=== PATIENT | female | born 2000 ===

== ENCOUNTER 2023-03-27 15:48 | Inpatient (IN) | payer BC ==
[2023-03-27] MEDS: Lactated Ringers 1,000 ML IV SCH ×3 (15:50→20:08)
[2023-03-27] MEDS ORDERED: Sodium Chloride 0.9% 20 ML SDV IV PRN (15:53)
[2023-03-27] MEDS ORDERED: Sodium Chloride 0.9% 2.5 ML Syringe FLUSH PRN (15:53)
[2023-03-27] MEDS ORDERED: Butorphanol 1 MG/ML SDV IVPUSH PRN (15:53)
[2023-03-27] MEDS ORDERED: Carboprost Tromethamine 250 MCG/1 mL Vial IM PRN (15:53)
[2023-03-27] MEDS ORDERED: Misoprostol 200 MCG Tab PO PRN (15:53)
[2023-03-27] MEDS ORDERED: Methylergonovine 0.2 MG/1 ML Amp IM PRN (15:53)
[2023-03-27] MEDS ORDERED: Water For Irrigation,Sterile 1,000 ML Container IRR PRN (15:53)
[2023-03-27] MEDS ORDERED: Lidocaine 1% 50 ML MDV INJECT PRN (15:53)
[2023-03-27] MEDS ORDERED: Tranexamic Acid 1,000 MG in Sodium Chloride 0.9% 100 ML IV PRN (15:53)
[2023-03-27] MEDS ORDERED: Sodium Chloride 0.9% 10 ML Syringe FLUSH PRN (15:53)
[2023-03-27] MEDS ORDERED: Dexmedetomidine 200 MCG/2 ML SDV ONE (15:58)
[2023-03-27] MEDS ORDERED: Morphine PF 10 MG/10 ML SDV ONE (15:58)
[2023-03-27] MEDS ORDERED: Ondansetron 4 MG/2 ML SDV ONE (15:58)
[2023-03-27] MEDS ORDERED: Lactated Ringers 1,000 ML IV SCH (16:00)
[2023-03-27] MEDS ORDERED: Oxytocin/0.9 % Sodium Chloride 30 UNIT/500 ML BAG IV SCH ×2 (16:00)
[2023-03-27] MEDS ORDERED: ePHEDrine 50 MG/ML SDV IVPUSH PRN (16:19)
[2023-03-27] MEDS ORDERED: Ondansetron 4 MG/2 ML SDV IVPUSH PRN ×2 (16:19→19:55)
[2023-03-27] MEDS ORDERED: diphenhydrAMINE 50 MG/ML SDV IVPUSH PRN (16:19)
[2023-03-27 16:21] LABS: HEMATOCRIT 38.9 % (36.0-46.0); HEMOGLOBIN 13.5 g/dL (12.0-16.0); MEAN CORPUSCULAR HEMOGLOBIN 29.6 pg (27.0-32.0); MEAN CORPUSCULAR HGB CONC 34.7 g/dL (31.0-37.0); MEAN CORPUSCULAR VOLUME 85.3 fL (80.0-98.0); PLATELET COUNT,PLT 330 K/uL (150-400); RED BLOOD CELL COUNT 4.56 M/uL (4.30-5.90); WHITE BLOOD CELL COUNT,WBC 11.75 K/uL (4.0-11.0)
[2023-03-27] MEDS ORDERED: Citric Acid/Sodium Citrate Solution 30 ML Cup PO ONE (16:50)
[2023-03-27] MEDS ORDERED: Lidocaine 2% with EPINEPHrine 1:200,000 20 ML SDV ONE (16:51)
[2023-03-27] MEDS ORDERED: ceFAZolin 2 GM Vial ONE ×2 (16:54→18:43)
[2023-03-27] MEDS ORDERED: ceFAZolin 1 GM Vial ONE (18:43)
[2023-03-27] MEDS ORDERED: Ketorolac 30 MG/ML SDV ONE (18:55)
[2023-03-27] MEDS ORDERED: Oxytocin 10 Units/1 ML SDV ONE (18:55)
[2023-03-27] MEDS ORDERED: Dexamethasone 4 MG/ML 5 ML MDV ONE (18:56)
[2023-03-27] MEDS ORDERED: Phenylephrine HCl 0.5 MG/5 ML AMP ONE (18:58)
[2023-03-27] MEDS ORDERED: Ropivacaine 0.5% 5 MG/ML 30 ML SDV ONE (19:16)
[2023-03-27 19:54] LABS: AMPHETAMINES SCREEN, URINE NEGATIVE (CUTOFF=500); BARBITURATE SCREEN,URINE NEGATIVE (CUTOFF=200); BENZODIAZEPINES SCREEN,URINE NEGATIVE (CUTOFF=150); BUPRENORPHINE SCREEN,URINE NEGATIVE (CUTOFF=10); METHADONE SCREEN, URINE NEGATIVE (CUTOFF=200); METHAMPHETAMINES SCREEN, URINE NEGATIVE (CUTOFF=500); OXYCODONE SCREEN,URINE NEGATIVE (CUT0FF=100); PCP SCREEN,URINE NEGATIVE (CUTOFF=25); PROPOXYPHENE SCREEN,URINE NEGATIVE (CUTOFF=300); THC SCREEN,URINE 20 NG/ML NEGATIVE (CUTOFF=50)
[2023-03-27] MEDS ORDERED: Bisacodyl 10 MG Supp RECTAL PRN (19:55)
[2023-03-27] MEDS ORDERED: Acetaminophen/oxyCODONE 325-5 MG Tab PO PRN (19:55)
[2023-03-27] MEDS ORDERED: Misoprostol 200 MCG Tab RECTAL PRN (19:55)
[2023-03-27] MEDS ORDERED: Lanolin 100% Cream 7 GM Tube TOP PRN (19:55)
[2023-03-27 20:11] LABS: PH,UMBILICAL ARTERIAL 7.22 (7.18-7.38); PH,UMBILICAL VENOUS 7.264 (7.25-7.45)
[2023-03-28] MEDS: Lactated Ringers 1,000 ML IV SCH (02:03)
[2023-03-28] MEDS: Ketorolac 30 MG/ML SDV IVPUSH SCH ×4 (02:04→20:22)
[2023-03-28 06:29] LABS: HEMATOCRIT 38.1 % (36.0-46.0); HEMOGLOBIN 13.2 g/dL (12.0-16.0); MEAN CORPUSCULAR HEMOGLOBIN 29.9 pg (27.0-32.0); MEAN CORPUSCULAR HGB CONC 34.6 g/dL (31.0-37.0); MEAN CORPUSCULAR VOLUME 86.2 fL (80.0-98.0); PLATELET COUNT,PLT 319 K/uL (150-400); RED BLOOD CELL COUNT 4.42 M/uL (4.30-5.90); WHITE BLOOD CELL COUNT,WBC 15.46 K/uL (4.0-11.0)
[2023-03-28] MEDS: Docusate Sodium 100 MG Cap PO SCH ×3 (07:51→20:23)
[2023-03-28] MEDS: Acetaminophen 500 MG Tab PO PRN ×2 (13:14→19:31)
[2023-03-28] MEDS ORDERED: Measles, Mumps & Rubella Vaccine 0.5 ML SDV SUBCUT ONE (22:38)
[2023-03-28] MEDS: diphenhydrAMINE 50 MG/ML SDV IVPUSH PRN (23:31)
[2023-03-29] MEDS: Acetaminophen 500 MG Tab PO PRN (05:34)
[2023-03-29] MEDS: diphenhydrAMINE 50 MG/ML SDV IVPUSH PRN (05:35)
[2023-03-29] MEDS: Acetaminophen/oxyCODONE 325-5 MG Tab PO PRN ×2 (08:53→12:11)
[2023-03-29] MEDS: Docusate Sodium 100 MG Cap PO SCH ×2 (08:53→20:40)
[2023-03-29] MEDS: Ketorolac 30 MG/ML SDV IVPUSH SCH (14:01)
[2023-03-30] MEDS: Ibuprofen 800 MG Tab PO PRN ×3 (04:29→23:37)
[2023-03-30] MEDS: Acetaminophen/oxyCODONE 325-5 MG Tab PO PRN ×3 (04:30→23:37)
[2023-03-30] MEDS: Docusate Sodium 100 MG Cap PO SCH ×2 (08:37→20:26)
[2023-03-30] MEDS: Acetaminophen 500 MG Tab PO PRN (20:25)
== END 2023-03-30 23:51 | disposition home or self-care (01) | DRG 540 ==
LOC: MW.OB 15:48 → OBSVTOIN 19:20 → MW.OB 03-28 00:52
PROVIDERS: ADMIT Obstetrics & Gynecology; ATTEND Obstetrics & Gynecology
PROC: 10D00Z1 Extraction of Products of Conception, Low, Open Approach (ICD-10-PCS; principal; 2023-03-27)
DX: O36.5930 Maternal care for other known or suspected poor fetal growth, third trimester, not applicable or unspecified (principal); Z37.0 Single live birth; O41.03X0 Oligohydramnios, third trimester, not applicable or unspecified; O32.1XX0 Maternal care for breech presentation, not applicable or unspecified; O99.214 Obesity complicating childbirth; E66.01 Morbid (severe) obesity due to excess calories; Z3A.36 36 weeks gestation of pregnancy
CPT/HCPCS: 01961; 36415; 64488; 80305-QW; 82803; 85027; 86592; 86850; 86900; 86901; 90707; A9270-GY; J0131; J0690; J1100; J1200; J1885; J2274; J2370; J2405; J2590; J2795; J3490; J7120